=== PATIENT | female | born 2000 | race Caucasian/White ===

== ENCOUNTER 2021-07-03 13:44 | Outpatient (CLI) | payer MEDICARE, MEDICAID ==
[~2021-07-03 13:44] MED LIST: IBUP-2185 PO
== END 2021-07-03 14:08 ==
LOC: SLEEP 13:44
PROVIDERS: ATTEND Psychiatry & Neurology Neurology
DX: G47.33 Obstructive sleep apnea (adult) (pediatric) (principal)
CPT/HCPCS: G0399